=== PATIENT | male | born 1985 | race Two or more races ===

== ENCOUNTER 2023-10-02 03:05 | Emergency (ER) | payer OTHER ==
[~2023-10-02] VITALS: Ht 157.5 cm; Wt 81.8 kg
[2023-10-02 03:22] VITALS: BP 139/92; PULSE 91; RESP 16; TEMP 98.2; O2SAT 96
[2023-10-02] MEDS ORDERED: BENZOCAINE (DENTAL) 20 % SPRAY 60ML MT ONE (04:45)
[2023-10-02] MEDS ORDERED: AUG875T PO (05:39)
== END 2023-10-02 06:08 | disposition home or self-care (01) ==
LOC: ER 03:05
DX: K04.7 Periapical abscess without sinus (principal)
CPT/HCPCS: 41800